=== PATIENT | male | born 1980 | race Two or more races ===

== ENCOUNTER 2022-01-23 10:58 | Emergency (ER) | payer OTHER, MEDICAID | END 2022-01-23 14:00 | disposition home or self-care (01) | LOC: JD.ED 10:58 | DX: S09.93XA Unspecified injury of face, initial encounter (principal); E11.9 Type 2 diabetes mellitus without complications; V49.50XA Passenger injured in collision with unspecified motor vehicles in traffic accident, initial encounter; Y92.410 Unspecified street and highway as the place of occurrence of the external cause | CPT/HCPCS: 70486; 70486-26; 99284 ==